=== PATIENT | male | born 1945 | race Native Hawaiian/Other Pacific Islander ===

== ENCOUNTER 2017-02-15 10:59 | Emergency (ER) | payer OTHER, MEDICARE ==
[~2017-02-15] VITALS: Ht 188 cm; Wt 147.4 kg
[2017-02-15 10:52] VITALS: TEMP 98.4
[2017-02-15 11:27] LABS: PLATELET COUNT 275 K/uL (142-355)
[2017-02-15] MEDS ORDERED: CLON0.1D TD (11:31)
[2017-02-15] MEDS ORDERED: ASPIRIN325 M1 OR (11:32)
[2017-02-15] MEDS ORDERED: MAGNESIUM1 TAB PO (11:32)
[2017-02-15] MEDS ORDERED: SPIR50TA8 PO (11:34)
[2017-02-15 11:35] LABS: POTASSIUM 3.6 mmol/L (3.6-5.2)
[2017-02-15 11:46] LABS: PARTIAL THROMBOPLASTIN TIME 25.4 SECONDS (24.5-33.6)
[2017-02-15 12:51] VITALS: BP 148/88
== END 2017-02-15 13:20 | disposition short-term general hospital (02) ==
LOC: ED 10:59
DX: I63.9 Cerebral infarction, unspecified (principal); I48.91 Unspecified atrial fibrillation; R06.09 Other forms of dyspnea
CPT/HCPCS: 36415; 80053; 82550; 83880; 84484; 85027; 85610; 85730; 93005; 96360; 99284

== ENCOUNTER 2017-02-15 13:35 | Outpatient (CLI) | payer OTHER, MEDICARE ==
[~2017-02-15 13:35] MED LIST: ASPIRIN325 M1 OR; CLON0.1D TD; MAGNESIUM1 TAB PO; SPIR50TA8 PO
== END 2017-02-15 14:52 | disposition short-term general hospital (02) ==
LOC: AMB 13:35
DX: I63.9 Cerebral infarction, unspecified (principal); I48.91 Unspecified atrial fibrillation; R06.09 Other forms of dyspnea
CPT/HCPCS: A0425; A0427